=== PATIENT | female | born 1970 | race Caucasian/White ===

== ENCOUNTER 2025-07-19 00:43 | Emergency (ER) | payer OTHER, SELFPAY ==
[2025-07-19 00:44] VITALS: BP 120/69; PULSE 79; RESP 16; TEMP 36.1; O2SAT 96; BMI 55.2
[2025-07-19] MEDS: Lidocaine 2% /Epi 1:100 (20ml) 20 ML VIAL INFILT (01:42)
--- NOTE | 2025-07-19 02:17 | EDS_ITS ---
HPI History of Present Illness Chief Complaint: Abscess Informant: patient Narrative Narrative: Patient is a 54-year-old female with past medical history of insulin-dependent diabetes. She states that over the last 24 to 48 hours she has noticed pain swelling and redness in her right axilla region. She states she has dealt with abscesses in the past and this feels similar in nature. She denies any fevers chills or systemic symptoms. She states that throughout the day the area has become more painful and swollen and she feels it may need incised and drained and secondary to this comes in for evaluation [facility] Medical History (Updated 07/19/25 @ 06:[address] Josemanuel Arnold, DO) Diabetes Home Medications ?Medication ?Instructions ?Recorded ?Last Taken ?Type clindamycin HCl 300 mg capsule 300 mg PO 4X/DAY 10 day s #40 caps 07/19/25 Unknown Rx (Cleocin HCl) oxycodone-acetaminophen 5 mg-325 1 tab PO Q6H PRN pain 3 days #12 07/19/25 Unknown Rx mg tablet (Endocet) tabs Allergy/AdvReac Type Severity Reaction Status Date / Time ampicillin Allergy Hives Verified 07/19/25 00:44 Social History Smoking Status: Never smoker ROS [facility] ED Constitutional Constitutional ED: Denies chills or fever(s) ENT ENT ED: Denies sore throat Cardiovascular Cardiovascular: Denies chest pain Respiratory/Chest Respiratory/Chest: Denies cough or dyspnea Gastrointestinal Gastrointestinal: Denies abdominal pain, diarrhea, nausea or vomiting Genitourinary Genitourinary ED: Reports dysuria Musculoskeletal Musculoskeletal: Denies myalgias Integumentary Reports abscess Neurologic Neurologic: Denies headache(s) Hematologic/Lymphatic Hematologic/Lymphatic: Denies easy bleeding or easy bruising EXAM Physical Exam Const Vital Signs: 07/19/25 00:44 07/19/25 02:30 Temperature 97 F L 98.0 F Temperature Source Temporal Pulse Rate 79 74 Respiratory Rate 16 16 Blood Pressure 120/69 118/60 Blood Pressure Mean 86 79 Pulse Ox 96 96 Positive well nourished, well developed and obese General Appearance ED: well developed Nutritional Appearance: obese HEENT HEENT Narrative: Normocephalic atraumatic Eyes PERRL and EOMs intact bilaterally General Eye ED: Negative for scleral icterus Neck supple Resp normal respiratory effort and clear to auscultation bilaterally Cardio regular rate and regular rhythm Extremity Extremity Narrative: Right upper extremity is neurovascularly intact; in the right axilla is a 1 x 2 cm area of erythema warmth and induration with pustule head most consistent with abscess. There is no lymphangitic streaking noted. No active discharge present. No subcutaneous emphysema noted. Remainder of the exam is normal Neuro oriented x3, CN's II-XII intact bilaterally and no sensory deficits noted Sensorium / Orientation: alert Motor Exam: strength 5/5 throughout Psych mental status grossly normal Skin Skin Narrative: Soft tissue changes in the right axilla consistent/concerning for abscess MDM MDM MDM Narrative Medical decision making narrative: Patient presented to the ER with stable vitals. She reported roughly 1 day of increasing redness swelling and pain in the right axilla. History and exam is most consistent with abscess. She does not have a fever or lymphangitic streaking going against systemic infection and sepsis. There is no crepitance to indicate necrotizing fasciitis. Therefore this time I do not feel the need for imaging or laboratory studies. Patient had the area incised and drained as documented below. As the area of infection has now been open she is safe to be placed on antibiotics and discharged Patient had the right axilla cleaned with chlorhexidine. It was anesthetized with 6 mL of 2% lidocaine with epinephrine and local fashion. A #11 blade was used to make a 1 cm incision over top of the area of induration. A moderate amount of purulent material and sebaceous material was expressed from the wound. Loculations were dissected with a needle colon. The area was copiously irrigated with normal saline. Then quarter inch iodoform gauze was packed in the wound. Patient tolerated the procedure well without complication History & Record Review Discussion w/independent historian: Patient Discharge Plan Triage Chief Complaint: Abscess ED Provider: Josemanuel Arnold Dx/Rx/DC Orders Clinical Impression: Infected sebaceous cyst, Insulin dependent diabetes mellitus, Morbid obesity Instructions: ED Abscess Incision And Drainage Prescriptions: New clindamycin HCl [Cleocin HCl] 300 mg capsule 300 mg PO 4X/DAY 10 Days Qty: 40 0RF oxycodone-acetaminophen [Endocet] 5-325 mg tablet 1 tab PO Q6H PRN (Reason: pain) 3 Days Qty: 12 0RF Primary Care Provider: Zackary Partida Referrals: Zackary Partida DO [Primary Care Provider, Family Practice] Activity Restrictions/Additional Instructions: Please remove your packing in 2 to 3 days. Take your antibiotic as directed to help resolve any remaining infection and return to the ER should you have any further concerns Print Language: Nepali Disposition Disposition: Home, Self Care Discharge Date/Time: 07/19/25 02:32
[2025-07-19 02:30] VITALS: BP 118/60; PULSE 74; RESP 16; TEMP 36.7; O2SAT 96
== END 2025-07-19 02:32 | disposition home or self-care (01) ==
PROVIDERS: Emergency Provider Emergency Medicine; PCP Hospitalist; Visit Provider Emergency Medicine
DX: L72.3 Sebaceous cyst (principal); E66.01 Morbid (severe) obesity due to excess calories; Z79.4 Long term (current) use of insulin; E11.9 Type 2 diabetes mellitus without complications
CPT/HCPCS: 10060; 99284